=== PATIENT | male | born 1975 | race Caucasian/White ===

== ENCOUNTER 2022-04-08 18:24 | Emergency (ER) | payer SELFPAY ==
[~2022-04-08 18:24] MED LIST: IBUPROFEN800 MG PO; PHENERGAN 25 MG25 M1 PO; VIBRAMYCIN100 MG PO
[2022-04-08] MEDS ORDERED: NAPROSYN500 MG PO (21:16)
== END 2022-04-08 21:25 | disposition home or self-care (01) ==
LOC: ER1 18:24
DX: S86.912A Strain of unspecified muscle(s) and tendon(s) at lower leg level, left leg, initial encounter (principal); S83.92XA Sprain of unspecified site of left knee, initial encounter; I10 Essential (primary) hypertension; K21.9 Gastro-esophageal reflux disease without esophagitis; W17.89XA Other fall from one level to another, initial encounter; Y92.828 Other wilderness area as the place of occurrence of the external cause
CPT/HCPCS: 29530; 72170; 73564; 73590; 99283